=== PATIENT | male | born 1995 | race Caucasian/White ===

== ENCOUNTER 2024-03-28 09:42 | Outpatient (OUT) | payer OTHER, SELFPAY ==
--- NOTE | 2024-03-28 09:54 | XR_ITS ---
The [address] [address] Patient Name: KAMAR IVORY MRN: [id number] date: 1995 Sex: M Assigned Patient Location: [facility] Current Patient Location: [facility] Accession/Order Number: [id number] Exam Date: 03/28/2024 10:10 Report Date: 03/28/2024 11:07 At the request of: NORA MOSLEY Procedure: XR lumbar spine 2-3V EXAMINATION: XR lumbar spine 2-3V HISTORY: Lumbar Radicular Syndrome M54.16 COMPARISON: No relevant comparison available. FINDINGS: BONES: Normal. No significant spondylosis, scoliosis, fracture, or visible bony lesion. DISC SPACES: Normal. No significant disc height narrowing, subluxation, or endplate abnormality. PARASPINOUS: Negative. No paraspinous abnormality is seen. OTHER: Negative. XR/XR lumbar spine 2-3V IMPRESSION: No acute radiographic abnormality Electronically authenticated by: MIRELLA DEL ROSARIO Date: 03/28/2024 11:07
== END 2024-03-28 09:43 | disposition home or self-care (01) ==
LOC: RAD 09:50
PROVIDERS: PCP Family Medicine; Visit Provider Family Medicine
DX: M54.16 Radiculopathy, lumbar region (principal)
CPT/HCPCS: 72100

== ENCOUNTER 2024-07-25 15:33 | Outpatient (OUT) | payer OTHER, SELFPAY ==
--- NOTE | 2024-07-25 15:40 | MR_ITS ---
The [address] [address] Patient Name: KAMAR IVORY MRN: [id number] date: 1995 Sex: M Assigned Patient Location: MRI Current Patient Location: MRI Accession/Order Number: [id number] Exam Date: 07/25/2024 16:03 Report Date: 07/25/2024 17:57 At the request of: NORA MOSLEY Procedure: MR lumbar spine wo con MR lumbar spine wo con, 07/25/2024 4:03 PM EDT INDICATION: Radiculopathy lumbar region M54.16 COMPARISON: Prior x-ray of the lumbar spine dated 03/28/2024 TECHNIQUE: Multiplanar, multisequential MRI images of lumbar spine were obtained without contrast. FINDINGS: For dictation purposes, the lowest complete disc space in the lumbar spine considered as L5-S1. There is normal physiologic lumbar lordosis. The vertebral height is preserved. Focal sclerosis within the left iliac bone adjacent to the SI joint appears as a nonaggressive and benign lesion in x-ray. The conus medullaris is at the level of L1. No signal abnormality within the visualized spinal cord is noted. No neural foraminal narrowing or canal stenoses at the level of T12-L4 is noted. At the level of L4-5, there are disc bulge with no neuroforaminal narrowing and no canal stenosis. At the level of L5-S1, there are disc bulge with superimposed right lateral and neuroforaminal protrusion and annular fissure with mild bilateral neuroforaminal narrowing and no canal stenosis. The paraspinal muscles are unremarkable. 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 Electronically authenticated by: LEYLA PARDO Date: 07/25/2024 17:57
--- OUTSIDE RECORDS SUMMARY | 2024-07-25 15:44 | XMS_ITS | CCD ---
Author Organization [facility] [employer] [facility] Care Team Providers Care Web Site Designer Name Role Phone Jairo Nora Unavailable LEVAR PAL Unavailable Unavailable LEVAR PAL Unavailable Unavailable NORA MOSLEY Unavailable Unavailable Levar Pal Unavailable Unavailable Levar Pal Unavailable Unavailable Levar Pal Unavailable Unavailable Levar Pal Unavailable Unavailable Levar Pal Unavailable Unavailable Levar Pal Unavailable Unavailable NORA MOSLEY Primary Care Unavailable NORA MOSLEY Primary Care Unavailable Allergies Allergy Classification Reported Allergen(s) Allergy Type Date of Onset Reaction(s) Facility (1 source) No Known Medication Allergies; Translations: [No Known Medication Allergies] Propensity to adverse reactions to drug (disorder) [facility] Repository Medications Current Medications Medication Drug Class(es) Dates Sig (Normalized) Sig (Original) amitriptyline hydrochloride 25 mg oral tablet (3 sources) Tricyclic Antidepressant take 1 tablet by mouth once amitriptyline (ELAVIL) 25 MG tablet Take 25 mg by mouth nightly. Active Problems Active Problems Problem Classification Problem Date Documented Da te Episodic/Chronic Administrative/social admission (2 sources) Encounter for pre-employment examination; Translations: [Encounter for pre-employment examination] Onset: 05-30-2018 Episodic Past or Other Problems Problem Classification Problem Date Documented Da te Episodic/Chronic Unclassified (1 source) Patient encounter status Results Test Name Value Interpretation Reference Range Facility Consent Formson 10-04-2023 Consent Forms [id number] Normal [facility] CMP Standardon 08-30-2023 eGFR Non AA >60 Invalid Interpretation Code [facility] Comment on above: Performed By: #### 2 438418, 0793795, 7543878696, 5785154, 8386196, 5522070, [id number] #### [facility] (DEFAULT) [address] [place] [address] eGFR AA >60 Invalid Interpretation Code [facility] Comment on above: Performed By: #### 2 466037, 7551068, 1880528913, 9623111, 8157360, 5400081, [id number] #### [facility] (DEFAULT) [address] [place] [address] 04945 Albumin [Mass/Vol] 4.7 g/dL Normal 3.5-5.0 [facility] Comment on above: Performed By: #### 2 672459, 5860030, 4493719235, 3370474, 2450062, 8093497, [id number] #### [facility] (DEFAULT) [address] [place] [address] 93999 Alk Phos 56 IU/L Normal 32-91 [facility] Comment on above: Performed By: #### 2 430788, 8272666, 9544262244, 5248266, 9884699, 6436789, 1841199295 #### [facility] (DEFAULT) [address] [place] [address] 27999 ALT [Catalytic activity/Vol] 34.0 U/L Normal 17.0-63.0 [facility] Comment on above: Performed By: #### 2 973618, 3798394, 5837387877, 1657114, 1801121, 8165832, 9392023021 #### [facility] (DEFAULT) [address] [place] [address] 42155 AST [Catalytic activity/Vol] 25 U/L Normal 15-41 [facility] Comment on above: Performed By: #### 2 207311, 4703049, 7499014888, 6270625, 6278006, 9355496, 3129343661 #### [facility] (DEFAULT) [address] [place] [address] 43464 Bili Total 0.7 mg/dL Normal 0.3-1.2 [facility] Comment on above: Performed By: #### 2 913054, 3009408, 7622428029, 7302490, 4807400, 4522095, 5743453010 #### [facility] (DEFAULT) [address] [place] [address] 97539 Calcium [Mass/Vol] 9.1 mg/dL Normal 8.9-10.3 [facility] Comment on above: Performed By: #### 2 253513, 4292187, 5985934880, 3136897, 4395724, 8590005, 1348578003 #### [facility] (DEFAULT) [address] [place] [address] 79816 Chloride [Moles/Vol] 106 mmol/L Normal 101-111 [facility] Comment on above: Performed By: #### 2 160256, 7442234, 3344408959, 4757797, 3713864, 0898683, 0429306562 #### [facility] (DEFAULT) [address] [place] [address] 43382 CO2 [Moles/Vol] 27 mmol/L Normal 21-32 [facility] Comment on above: Performed By: #### 2 090313, 9656798, 3111405404, 2292739, 7268575, 2533843, 8805739389 #### [facility] (DEFAULT) [address] [place] [address] 62759 Creatinine [Mass/Vol] 1.15 mg/dL Normal 0.90-1.30 [facility] Comment on above: Performed By: #### 2 333511, 1166798, 0526901420, 1900744, 1064248, 3019381, 1554337143 #### [facility] (DEFAULT) [address] [place] [address] 96886 Glucose [Mass/Vol] 85.0 mg/dL Normal 74.0-118.0 [facility] Comment on above: Performed By: #### 2 393240, 5074013, 0283443942, 5989780, 7635732, 5411602, 0811765922 #### [facility] (DEFAULT) [address] [place] [address] 00712 Potassium [Moles/Vol] 4.1 mmol/L Normal 3.6-5.1 [facility] Comment on above: Performed By: #### 2 130760, 0635292, 2647256317, 0202859, 7135377, 0270416, 8705431054 #### [facility] (DEFAULT) [address] [place] [address] 23234 Protein [Mass/Vol] 7.8 g/dL Normal 6.5-8.1 [facility] Comment on above: Performed By: #### 2 132155, 8311217, 7811993672, 0674192, 7791411, 7642314, 3717762207 #### [facility] (DEFAULT) [address] [place] [address] 87071 Sodium [Moles/Vol] 140.0 mmol/L Normal 136.0-144.0 [facility] Comment on above: Performed By: #### 2 672950, 8197377, 6943770653, 7632722, 9467202, 8241483, 9824411887 #### [facility] (DEFAULT) [address] [place] [address] 20444 Urea nitrogen [Mass/Vol] 18 mg/dL Normal 8-26 [facility] Comment on above: Performed By: #### 2 278751, 5121677, 1480678119, 0701812, 9652125, 5804258, 7193851604 #### [facility] (DEFAULT) [address] [place] [address] 54220 Albumin/Globulin [Mass ratio] 1.5 {ratio} Normal 1.4-2.6 [facility] Comment on above: Performed By: #### 2 780248, 2283080, 8852527275, 6364727, 4608038, 9757095, 1873005954 #### [facility] (DEFAULT) [address] [place] [address] 70493 Anion gap [Moles/Vol] 11.1 mmol/L Normal 5.0-19.0 [facility] Comment on above: Performed By: #### 2 086063, 5489301, 3702936561, 6810343, 4741021, 7248294, 6267198737 #### [facility] (DEFAULT) [address] [place] [address] Globulin (S) [Mass/Vol] 3.1 g/dL Normal 1.5-4.3 [facility] Comment on above: Performed By: #### 2 791953, 0096953, 1409390559, 9093551, 2779424, 9657770, 5889091100 #### [facility] (DEFAULT) [address] [place] [address] Osmolality 280 mOsm/L Invalid Interpretation Code [facility] Comment on above: Performed By: #### 2 271270, 8536281, 0951896725, 3722006, 8111805, 8585657, 6638234276 #### [facility] (DEFAULT) [address] [place] [address] Urea nitrogen/Creatinin e [Mass ratio] 15.6 mg/mg Normal 4.6-16.2 [facility] Comment on above: Performed By: #### 2 482948, 0871803, 6577698026, 7270079, 3501692, 1479758, 1550304490 #### [facility] (DEFAULT) [address] [place] [address] 65095 GGTon 08-30-2023 Gamma glutamyl transferase [Catalytic activity/Vol] 25.0 U/L Normal 7.0-50.0 [facility] Comment on above: Performed By: #### 2 622694, 9322408, 4750818193, 5554882, 6155489, 8894104, 4001121653 #### [facility] (DEFAULT) [address] [place] [address] 22948 Iron Levelon 08-30-2023 Iron [Mass/Vol] 99.0 ug/dL Normal 45.0-182.0 [facility] Comment on above: Performed By: #### 2 806998, 2158032, 4574150132, 7519453, 1165677, 1091550, 1164736396 #### [facility] (DEFAULT) [address] [place] [address] 34717 LDHon 08-30-2023 LDH 149.0 IU/L Normal 98.0-192.0 [facility] Comment on above: Performed By: #### 2 170401, 1766000, 8260196408, 2605611, 5985329, 1000351, 7915482469 #### [facility] (DEFAULT) [address] [place] [address] 48370 Lipid Panel Standardon 08-30 Cholesterol [Mass/Vol] 253.0 mg/dL High 66.0-200.0 [facility] Comment on above: Performed By: #### 2 369028, 3810797, 2815635424, 4269413, 4793969, 1013052, 9320808293 #### [facility] (DEFAULT) [address] [place] [address] 19745 Cholesterol in HDL [Mass/Vol] 52 mg/dL Normal 40-71 [facility] Comment on above: Performed By: #### 2 709499, 8889894, 4484252294, 4291052, 5578702, 3416794, 8261306363 #### [facility] (DEFAULT) [address] [place] [address] 81097 Triglyceride [Mass/Vol] 128.0 mg/dL Normal 0.0-150.0 [facility] Comment on above: Performed By: #### 2 203290, 9184345, 8918566952, 3359236, 4326260, 3876813, 0818532304 #### [facility] (DEFAULT) [address] [place] [address] 08249 Cholesterol in LDL [Mass/Vol] 175 mg/dL High 1-100 [facility] Comment on above: Performed By: #### 2 895162, 5542990, 0588822698, 4218690, 1312194, 1381368, 9788072050 #### [facility] (DEFAULT) [address] [place] [address] 23618 Cholesterol.total/ Cholesterol in HDL [Mass ratio] 4.8 {ratio} High 0.0-4.5 [facility] Comment on above: Performed By: #### 2 503089, 1145275, 9522939521, 4044383, 1170784, 4369584, 1869331901 #### [facility] (DEFAULT) [address] [place] [address] VLDL. 26 mg/dL Normal 5-40 [facility] Comment on above: Performed By: #### 2 071041, 3656312, 1425623700, 6412797, 8346355, 3708308, 6655454238 #### [facility] (DEFAULT) [address] [place] [address] Phoson 08-30-2023 Phosphate [Mass/Vol] 3.7 mg/dL Normal 2.5-4.6 [facility] Comment on above: Performed By: #### 2 089637, 4443965, 1825087875, 4109054, 1134377, 3322959, 5533837751 #### [facility] (DEFAULT) [address] [place] [address] Uric Acidon 08-30-2023 Urate [Mass/Vol] 7.7 mg/dL Normal 4.8-8.7 [facility] Comment on above: Performed By: #### 2 503999, 8830189, 0696319130, 0634943, 7109201, 0933569, 5233892427 #### [facility] (DEFAULT) [address] [place] [address] CBC and Differentialon 05-31 Basophils Auto #/vol (Bld) 0.1 K/mcL Invalid Interpretation Code 0 - 0.2 [facility] Eosinophils Auto #/vol (Bld) 0.1 K/mcL Invalid Interpretation Code 0 - 0.5 [facility] Lymphocytes Auto #/vol (Bld) 2.3 K/mcL Invalid Interpretation Code 0.9 - 3.6 [facility] Monocytes Auto #/vol (Bld) 0.6 K/mcL Invalid Interpretation Code 0.2 - 0.6 [facility] Neutrophils Auto #/vol (Bld) 2.9 K/mcL Invalid Interpretation Code 1.4 - 6.8 [facility] Platelets Auto #/vol (Bld) 313 K/mcL Invalid Interpretation Code 139 - 354 [facility] RBC Auto #/vol (Bld) 5.23 M/mcL Invalid Interpretation Code 4.0 - 5.5 [facility] Segmented Neut 48.2 % Invalid Interpretation Code [facility] WBC Auto #/vol (Bld) 6.0 K/mcL Invalid Interpretation Code 3.6 - 10.4 [facility] CBC with Diffon 05-31-2018 Basophils Auto #/vol (Bld) 0.1 K/mcL Normal 0-0.2 [facility] Comment on above: Performed By: #### C BCDIF, CMET, LIPID ####Unless otherwise noted, all testing performed by [address] [phone]: [id number] Director: Rocael Luu M.D. Basophils/100 WBC Auto (Bld) 1.0 % Invalid Interpretation Code [facility] Comment on above: Performed By: #### C BCDIF, CMET, LIPID ####Unless otherwise noted, all testing performed by [address] [phone]: [id number] Director: Rocael Luu M.D. Eosinophils Auto #/vol (Bld) 0.1 K/mcL Normal 0-0.5 [facility] Comment on above: Performed By: #### C BCDIF, CMET, LIPID ####Unless otherwise noted, all testing performed by [address] [phone]: [id number] Director: Rocael Luu M.D. Eosinophils/100 WBC Auto (Bld) 2.3 % Invalid Interpretation Code [facility] Comment on above: Performed By: #### C BCDIF, CMET, LIPID ####Unless otherwise noted, all testing performed by [address] [phone]: [id number] Director: Rocael Luu M.D. Erythrocyte distribution width Auto Ratio (RBC) 12.9 % Invalid Interpretation Code 10 - 14.3 % [facility] Comment on above: Performed By: #### C BCDIF, CMET, LIPID ####Unless otherwise noted, all testing performed by [address] [phone]: [id number] Director: Rocael Luu M.D. Hematocrit Auto Volume Fraction (Bld) 47.7 % Invalid Interpretation Code 37.9 - 49.2 % [facility] Comment on above: Performed By: #### C BCDIF, CMET, LIPID ####Unless otherwise noted, all testing performed by [address] [phone]: [id number] Director: Rocael Luu M.D. Hemoglobin mass conc (Bld) 16.5 g/dL Invalid Interpretation Code 12.9 - 16.9 g/dL [facility] Comment on above: Performed By: #### C BCDIF, CMET, LIPID ####Unless otherwise noted, all testing performed by [address] [phone]: [id number] Director: Rocael Luu M.D. Lymphocytes Auto #/vol (Bld) 2.3 K/mcL Normal 0.9-3.6 [facility] Comment on above: Performed By: #### C BCDIF, CMET, LIPID ####Unless otherwise noted, all testing performed by [address] [phone]: [id number] Director: Rocael Luu M.D. Lymphocytes/100 WBC Auto (Bld) 39.0 % Invalid Interpretation Code [facility] Comment on above: Performed By: #### C BCDIF, CMET, LIPID ####Unless otherwise noted, all testing performed by [address] [phone]: [id number] Director: Rocael Luu M.D. MCH Auto Entitic mass (RBC) 31.5 pg Invalid Interpretation Code 27.7 - 34.6 pg [facility] Comment on above: Performed By: #### C BCDIF, CMET, LIPID ####Unless otherwise noted, all testing performed by [place] [phone]: [id number] Director: Rocael Luu M.D. MCHC Auto mass conc (RBC) 34.6 g/dL Invalid Interpretation Code 32.9 - 35.5 g/dL [facility] Comment on above: Performed By: #### C BCDIF, CMET, LIPID ####Unless otherwise noted, all testing performed by [address] [phone]: [id number] Director: Rocael Luu M.D. MCV Auto Entitic volume (RBC) 91.1 fL Invalid Interpretation Code 82.8 - 99.3 [facility] Comment on above: Performed By: #### C BCDIF, CMET, LIPID ####Unless otherwise noted, all testing performed by [address] [phone]: [id number] Director: Rocael Luu M.D. Monocytes Auto #/vol (Bld) 0.6 K/mcL Normal 0.2-0.6 [facility] Comment on above: Performed By: #### C BCDIF, CMET, LIPID ####Unless otherwise noted, all testing performed by [address] [phone]: [id number] Director: Rocael Luu M.D. Monocytes/100 WBC Auto (Bld) 9.5 % Invalid Interpretation Code [facility] Comment on above: Performed By: #### C BCDIF, CMET, LIPID ####Unless otherwise noted, all testing performed by [place] [phone]: [id number] Director: Rocael Luu M.D. Neutrophils Auto #/vol (Bld) 2.9 K/mcL Normal 1.4-6.8 [facility] Comment on above: Performed By: #### C BCDIF, CMET, LIPID ####Unless otherwise noted, all testing performed by [address]: [id number] Director: Rocael Luu M.D. Platelet mean volume Auto Entitic volume (Bld) 8.6 fL Invalid Interpretation Code 6.6 - 10.8 [facility] Comment on above: Performed By: #### C BCDIF, CMET, LIPID ####Unless otherwise noted, all testing performed by [address] [phone]: [id number] Director: Rocael Luu M.D. Platelets Auto #/vol (Bld) 313 K/mcL Normal 139-354 [facility] Comment on above: Performed By: #### C BCDIF, CMET, LIPID ####Unless otherwise noted, all testing performed by [address] [phone]: [id number] Director: Rocael Luu M.D. RBC Auto #/vol (Bld) 5.23 M/mcL Normal 4.0-5.5 [facility] Comment on above: Performed By: #### C BCDIF, CMET, LIPID ####Unless otherwise noted, all testing performed by [address] [phone]: [id number] Director: Rocael Luu M.D. Segmented Neut % 48.2 % Normal [facility] Comment on above: Performed By: #### C BCDIF, CMET, LIPID ####Unless otherwise noted, all testing performed by [address] [phone]: [id number] Director: Rocael Luu M.D. WBC Auto #/vol (Bld) 6.0 K/mcL Normal 3.6-10.4 [facility] Comment on above: Performed By: #### C BCDIF, CMET, LIPID ####Unless otherwise noted, all testing performed by [address] [phone]: [id number] Director: Rocael Luu M.D. Comprehensive Metabolic Pane mariely 05-31-2018 Albumin mass conc 4.1 g/dL Invalid Interpretation Code 3.2 - 5.2 g/dL [facility] Comment on above: Performed By: #### C BCDIF, CMET, LIPID ####Unless otherwise noted, all testing performed by [facility] [address] [phone]: [id number] Director: Rocael Luu M.D. ALP enzyme act/vol 69 U/L Invalid Interpretation Code 40 - 140 U/L [facility] Comment on above: Performed By: #### C BCDIF, CMET, LIPID ####Unless otherwise noted, all testing performed by [address] [phone]: [id number] Director: Rocael Luu M.D. ALT enzyme act/vol 44 U/L Invalid Interpretation Code 14 - 65 U/L [facility] Comment on above: Result Comment: This test result might be falsely depressed or falsely elevated onsamples drawn from patients taking Sulfasalazine and Sulfapyridine.Venipuncture should occur prior to taking either of these drugs. Performed By: #### C BCDIF, CMET, LIPID ####Unless otherwise noted, all testing performed by [address] [phone]: [id number] Director: Rocael Luu M.D. This test result jasmin ht be falsely depressed or falsely elevated on samples drawn from patients taking Sulfasalazine and Sulfapyridine. Venipuncture should occur prior to taking either of these drugs. AST enzyme act/vol 18 U/L Invalid Interpretation Code 0 - 45 U/L [facility] Comment on above: Result Comment: This test result might be falsely depressed or falsely elevated onsamples drawn from patients taking Sulfasalazine and Sulfapyridine.Venipuncture should occur prior to taking either of these drugs. Performed By: #### C BCDIF, CMET, LIPID ####Unless otherwise noted, all testing performed by [address] [phone]: [id number] Director: Rocael Luu M.D. This test result jasmin ht be falsely depressed or falsely elevated on samples drawn from patients taking Sulfasalazine and Sulfapyridine. Venipuncture should occur prior to taking either of these drugs. Bilirubin mass conc 0.6 mg/dL Invalid Interpretation Code 0.3 - 1.2 mg/dL [facility] Comment on above: Performed By: #### C BCDIF, CMET, LIPID ####Unless otherwise noted, all testing performed by [address] [phone]: [id number] Director: Rocael Luu M.D. Calcium mass conc 9.0 mg/dL Invalid Interpretation Code 8.4 - 10.2 mg/dL [facility] Comment on above: Performed By: #### C BCDIF, CMET, LIPID ####Unless otherwise noted, all testing performed by [address] [phone]: [id number] Director: Rocael Luu M.D. Chloride molar conc 105 mmol/L Invalid Interpretation Code 98 - 108 mmol/L [facility] Comment on above: Performed By: #### C BCDIF, CMET, LIPID ####Unless otherwise noted, all testing performed by [address] [phone]: [id number] Director: Rocael Luu M.D. CO2 molar conc 30 mmol/L Invalid Interpretation Code 21 - 32 mmol/L [facility] Comment on above: Performed By: #### C BCDIF, CMET, LIPID ####Unless otherwise noted, all testing performed by [address] [phone]: [id number] Director: Rocael Luu M.D. Creatinine mass conc 1.30 mg/dL Invalid Interpretation Code 0.5 - 1.3 mg/dL [facility] Comment on above: Performed By: #### C BCDIF, CMET, LIPID ####Unless otherwise noted, all testing performed by [address] [phone]: [id number] Director: Rocael Luu M.D. GFR/1.73 sq M predicted among blacks MDRD vol rate/area (S/P/Bld) mL/min/{1.73_m2} Invalid Interpretation Code ml/min/1.73sq .[facility] Comment on above: Result Comment: Afri can [place] GFR Calc Performed By: #### C BCDIF, CMET, LIPID ####Unless otherwise noted, all testing performed by [address] [phone]: [id number] Director: Rocael Luu M.D. GFR Calc GFR/1.73 sq M predicted among non-blacks MDRD vol rate/area (S/P/Bld) mL/min/{1.73_m2} Invalid Interpretation Code ml/min/1.73sq .[facility] Comment on above: Result Comment: Non- GFR CalceGFR is an estimated Glomerular Filtration Rate based on the valueof the patient's serum creatinine. In outpatients, eGFR should be usedas a helpful tool in screening for CKD. In inpatients or patients withacute renal failure, eGFR represents the GFR at the moment of the drawand should be used with caution. Performed By: #### C BCDIF, CMET, LIPID ####Unless otherwise noted, all testing performed by [address] [phone]: [id number] Director: Rocael Bell, M.D. Non- GFR Calc eGFR is an estimated Glomerular Filtration Rate based on the value of the patient's serum creatinine. In outpatients, eGFR should be used as a helpful tool in screening for CKD. In inpatients or patients with acute renal failure, eGFR represents the GFR at the moment of the draw and should be used with caution. Glucose mass conc 70 mg/dL Invalid Interpretation Code 70 - 99 mg/dL [facility] Comment on above: Result Comment: Iden tified as outpatient location, no call requiredThis test result might be falsely depressed or falsely elevated onsamples drawn from patients taking Sulfasalazine and Sulfapyridine.Venipuncture should occur prior to taking either of these drugs. Performed By: #### C BCDIF, CMET, LIPID ####Unless otherwise noted, all testing performed by [address] [phone]: [id number] Director: Rocael Luu M.D. Identified as outpat ient location, no call required This test result might be falsely depressed or falsely elevated on samples drawn from patients taking Sulfasalazine and Sulfapyridine. Venipuncture should occur prior to taking either of these drugs. Potassium molar conc 4.1 mmol/L Invalid Interpretation Code 3.5 - 5.1 mmol/L [facility] Comment on above: Performed By: #### C BCDIF, CMET, LIPID ####Unless otherwise noted, all testing performed by [address] [phone]: [id number] Director: Rocael Luu M.D. Protein mass conc 7.9 g/dL Invalid Interpretation Code 6 - 8 g/dL [facility] Comment on above: Performed By: #### C BCDIF, CMET, LIPID ####Unless otherwise noted, all testing performed by [address] [phone]: [id number] Director: Rocael Luu M.D. Sodium molar conc 140 mmol/L Invalid Interpretation Code 135 - 145 mmol/L [facility] Comment on above: Performed By: #### C BCDIF, CMET, LIPID ####Unless otherwise noted, all testing performed by [place] [phone]: [id number] Director: Rocael Luu M.D. Urea nitrogen mass conc 17 mg/dL Invalid Interpretation Code 8 - 25 mg/dL [facility] Comment on above: Performed By: #### C BCDIF, CMET, LIPID ####Unless otherwise noted, all testing performed by [place] [phone]: [id number] Director: Rocael Luu M.D. Lipid Panelon 05-31-2018 Cholesterol in HDL mass conc 46 mg/dL Invalid Interpretation Code 40 - 59 mg/dL [facility] Comment on above: Performed By: #### C BCDIF, CMET, LIPID ####Unless otherwise noted, all testing performed by [place] [phone]: [id number] Director: Rocael Luu M.D. Cholesterol in LDL mass conc 112 mg/dL Invalid Interpretation Code 10 - 150 mg/dL [facility] Comment on above: Performed By: #### C BCDIF, CMET, LIPID ####Unless otherwise noted, all testing performed by [place] [phone]: [id number] Director: Rocael Luu M.D. Cholesterol in VLDL mass conc 30 mg/dL Invalid Interpretation Code 5 - 40 mg/dL [facility] Comment on above: Performed By: #### C BCDIF, CMET, LIPID ####Unless otherwise noted, all testing performed by [address] [phone]: [id number] Director: Rocael Luu M.D. Cholesterol mass conc 188 mg/dL Invalid Interpretation Code 100 - 199 mg/dL [facility] Comment on above: Performed By: #### C BCDIF, CMET, LIPID ####Unless otherwise noted, all testing performed by [address] [phone]: [id number] Director: Rocael Luu M.D. Cholesterol.total/ Cholesterol in HDL mass ratio 4.1 {ratio} Invalid Interpretation Code 3.2 - 5.0 [facility] Comment on above: Result Comment: Male Coronary Heart Disease Risk Factor (CHDRF):Average risk= 5.01/2 Average risk= 3.42 times Average risk= 9.6 Performed By: #### C BCDIF, CMET, LIPID ####Unless otherwise noted, all testing performed by [address] [phone]: [id number] Director: Rocael Luu M.D. Male Coronary Heart Disease Risk Factor (CHDRF): Average risk= 5.0 1/2 Average risk= 3.4 2 times Average risk= 9.6 Interpretation and review of laboratory results Abnormal Invalid Interpretation Code [facility] Triglyceride mass conc 149 mg/dL High 25 - 120 mg/dL [facility] Comment on above: Performed By: #### C BCDIF, CMET, LIPID ####Unless otherwise noted, all testing performed by [address] [phone]: [id number] Director: Rocael Luu M.D. STRESS TEST ONLY, EXERCISEon 05-30-2018 STRESS TEST ONLY, EXERCISE This is a summary report. The complete report is available in the patient's medical record. If you cannot access the medical record, please contact the sending organization for a detailed fax or copy.No diagnostic ECG changes at maximal workload. No significant arrhythmias noted with exercise or into recovery. Normal [facility] Ambulatory Stress test only, exerciseon 05-30-2018 Angina Index 0 1 Invalid Interpretation Code MUSE Baseline BP 132/97 Invalid Interpretation Code mmHg MUSE Baseline HR 67 bpm Invalid Interpretation Code MUSE Chance Treadmill Score 11.02 1 Invalid Interpretation Code MUSE Estimated workload 13.3 METS Invalid Interpretation Code MUSE Exercise duration (min) 11 min Invalid Interpretation Code MUSE Exercise duration (sec) 1 sec Invalid Interpretation Code MUSE Percent of predicted max HR 86 % Invalid Interpretation Code MUSE Post peak BP 170/103 Invalid Interpretation Code mmHg MUSE Post peak HR 169 bpm Invalid Interpretation Code MUSE ST Elevation (mm) 0 mm Invalid Interpretation Code MUSE Target HR 167 bpm Invalid Interpretation Code MUSE Stress test only, exercise No diagnostic ECG changes at maximal workload. No significant arrhythmias noted with exercise or into recovery. Invalid Interpretation Code MUSE Vital Signs Date Time Vital Sign Value Performing Clinician Tahir hutson 05-30-2018 07:47-0400 BMI (Body Mass Index) 28.04 kg/m2 [facility] 05-30-2018 07:47-0400 BP Diastolic 97 mm[Hg] [facility] 05-30-2018 07:47-0400 BP Systolic 132 mm[Hg] [facility] 05-30-2018 07:47-0400 Height 173 cm [facility] 05-30-2018 07:47-0400 Pulse (Heart Rate) 67 /min [facility] 05-30-2018 07:47-0400 Weight 83.92 kg [facility] Encounters Encounter Date Encounter Type Care Provider Facility Start: 07-17-2024 ambulatory [facility] Facility:[facility] Start: 08-29-2023 End: 08-29-2023 ambulatory [facility] Facility:[facility] Start: 05-31-2018 Patient encounter Levar hutson:[place] Start: 05-31-2018 End: 05-31-2018 Patient encounter Levar Pal Work Phone: [facility] Start: 05-31-2018 Patient encounter Levar morejony:[place] Start: 05-31-2018 End: 05-31-2018 Patient encounter Levar Benitezrio Work Phone: [facility] Start: 05-30-2018 End: 05-31-2018 Patient encounter LEVAR BENITEZRIO [facility] Start: 05-30-2018 End: 05-30-2018 Patient encounter Levar Pal Work Phone: [facility] Procedures Date Procedure Procedure Detail Performing Clinician Start: 05-30-2018 End: 05-30-2018 Cv strs tst xers&/or rx cont ecg w/o i&r External Transcribed Plan of Treatment Date Care Activity Detail Author Start: 05-20-2023 Tetanus vaccination TETANUS EVERY 10 YR [facility] Start: 06-30-2018 Influenza vaccination SEQUENTIAL INF LUENZA VACCINE (#1) [facility] Payers Date Payer Category Payer Policy ID Unknown [id number] Social History Date Type Detail Facility Start: 05-30-2018 Tobacco smoking status NHIS Never sm [facility] Sex Assigned At Not on file [facility] Assessments Diagnosis Pre-employment health screen ing examination Health examination of defined subpopulation Summary Purpose Family History No Family History Records FoundNo Family History Records FoundNo Family History Records Found Advance Directives No Advanced Directives Records FoundNo Advanced Directives Records FoundNo Advanced Directives Records Found Additional Source Comments Omero Brock RN - 05/30/2018 8:13 AM EDT Nursing Notes (unrecognized section and content) Resting ECG NSR, pt tolerated exercise well with no complaints of CP.in this encounter (unrecognized sect ion and content) No Status Records FoundNo Status Records FoundNo Status Records Found INFORMATION SOURCE (unrecogn ized section and content) DATE CREATED AUTHOR 05/31/2018 [facility] DATE CREATED AUTHOR AUTHOR'S ORGANIZ ATION 05/31/2018 [facility] DATE CREATED AUTHOR AUTHOR'S ORGANIZ ATION 07/20/2024 [facility] l FOR RECORDS PERTAINING TO PATIENTS WHO ARE OR HAVE BEEN ENROLLED IN A CHEMICAL DEPENDENCY/SUBSTANCEABUSE PROGRAM, SOME INFORMATION MAY BE OMITTED. This clinical summary was aggregated from multiple sources. Caution should be exercised in using it in the provision of clinical care. This summary normalizes information from multiple sources, and as a consequence, information in this document may materially change the coding, format and clinical context of patient data. In addition, data may be omitted in some cases. CLINICAL DECISIONS SHOULD BE BASED ON THE PRIMARY CLINICAL RECORDS. [facility] [employer] [facility]. provides no warranty or guarantee of the accuracy or completeness of information in this document.
== END 2024-07-25 15:34 | disposition home or self-care (01) ==
PROVIDERS: PCP Family Medicine; Visit Provider Family Medicine
DX: M54.16 Radiculopathy, lumbar region (principal); M51.36 Other intervertebral disc degeneration, lumbar region
CPT/HCPCS: 72148